=== PATIENT | male | born 1960 | race Caucasian/White ===

== ENCOUNTER 2019-07-26 17:02 | Inpatient (IN) | payer BC, MEDICARE ==
[~2019-07-26] VITALS: Ht 185.4 cm; Wt 98.0 kg
[2019-07-26] MEDS ORDERED: ACETAMINOPHEN 325MG TABLET PO STA (17:34)
[2019-07-26] MEDS ORDERED: KETOROLAC 30MG/ML VIAL IV STA (17:34)
[2019-07-26] MEDS ORDERED: ONDANSETRON HCL 4MG/2ML INJ IV STA (17:34)
[2019-07-26] MEDS ORDERED: HYDROCORTISONE SOD SUCCINATE 100 MG/2 ML VIAL IV ONE (17:45)
[2019-07-26] MEDS ORDERED: VANCOMYCIN 1 G PREMIX 200 ML IV ONE (17:45)
[2019-07-26] MEDS ORDERED: PIPERACILLIN/TAZ 3.375G PREMIX 50 ML IV ONE (17:45)
[2019-07-26] MEDS ORDERED: SODIUM CHLORIDE 0.9% 1000ML BAG (SEPSIS BOLUS) IV ONE (17:45)
[2019-07-26 18:13] LABS: CHLORIDE 95 mEq/L (98-107)
[2019-07-26 18:15] LABS: HEMATOCRIT. 30.9 % (42.0-52.0); HEMOGLOBIN. 10.6 g/dL (14.0-18.0); MEAN CORPUSCULAR HEMOGLOBIN 29.5 pg (28.0-32.0); MEAN CORPUSCULAR VOLUME 86.3 fL (80.0-94.0); MEAN PLATELET VOLUME 7.7 fl (7.4-10.4); PLATELET 136 x1000/uL (130-400); RED BLOOD CELL COUNT 3.59 mill/uL (4.7-6.1); RED CELL DISTRIBUTION WIDTH 14.3 % (11.6-14.6)
[2019-07-26 18:22] LABS: CREATINE KINASE 85 IU/L (39-308)
[2019-07-26 18:24] LABS: CREATINE KINASE MB FRACTION < 1.0 ng/mL (0.5-3.6)
[2019-07-26 18:32] LABS: INR 1.1; PROTHROMBIN TIME 11.6 sec (9.6-11.0)
[2019-07-26 18:38] LABS: CLARITY URINE CLEAR (CLEAR); COLOR URINE YELLOW (YELLOW); KETONES URINE NEGATIVE (NEGATIVE); LEUKOCYTE ESTERASE URINE NEGATIVE (NEGATIVE); NITRITE URINE NEGATIVE (NEGATIVE); OCCULT BLOOD URINE 2+ (NEGATIVE); PH URINE >=9.0 (4.5-8.0); PROTEIN URINE 3+ (NEGATIVE); SPECIFIC GRAVITY URINE 1.012 (1.005-1.030); UROBILINOGEN URINE 0.2 E.U./dL (0.2-1.0)
[2019-07-26 20:46] LABS: PLATELET ESTIMATE NORMAL
[2019-07-26] MEDS ORDERED: IPRATROPIUM/ALBUTEROL 0.5-3(2.5)MG/3ML NEB NEB PRN (22:45)
[2019-07-26] MEDS ORDERED: MAGNESIUM/ALUMINUM HYDROXIDE/SIMETHICONE 30ML UDC PO PRN (22:45)
[2019-07-26] MEDS ORDERED: DOCUSATE SODIUM 100MG CAPSULE PO PRN (22:45)
[2019-07-26] MEDS ORDERED: ENOXAPARIN 40MG/0.4ML SYR SUBCUT SCH (22:45)
[2019-07-26] MEDS ORDERED: NITROGLYCERIN 0.4MG TABLET SL SL PRN (22:45)
[2019-07-26] MEDS ORDERED: PIPERACILLIN/TAZ 3.375G PREMIX 50 ML IV SCH (22:45)
[2019-07-26] MEDS ORDERED: ZOLPIDEM TARTRATE 5MG TABLET PO PRN (22:45)
[2019-07-26] MEDS ORDERED: GUAIFENESIN 200MG/10ML SUGAR FREE UDC PO PRN (22:45)
[2019-07-27] MEDS: CLONIDINE 0.1MG TABLET PO PRN ×2 (01:03→08:41)
[2019-07-27] MEDS: TRAMADOL 50MG TABLET PO PRN ×4 (01:04→23:38)
[2019-07-27] MEDS: ACETAMINOPHEN 325MG TABLET PO PRN ×3 (04:31→20:02)
[2019-07-27 06:36] LABS: CREATINE KINASE 78 IU/L (39-308)
[2019-07-27 06:37] LABS: CREATINE KINASE MB FRACTION < 1.0 ng/mL (0.5-3.6)
[2019-07-27 08:49] LABS: *AMPHETAMINES SCREEN URINE NEGATIVE (NEGATIVE); *BARBITURATES SCREEN URINE NEGATIVE (NEGATIVE); *BENZODIAZEPINES SCREEN URINE NEGATIVE (NEGATIVE); *COCAINE SCREEN URINE NEGATIVE (NEGATIVE); METHADONE URINE SCREEN NEGATIVE (NEGATIVE); OPIATES URINE SCREEN NEGATIVE (NEGATIVE)
[2019-07-27 08:51] LABS: CANNABINOID URINE SCREEN NEGATIVE (NEGATIVE); PHENCYCLIDINE URINE SCREEN NEGATIVE (NEGATIVE)
[2019-07-27 10:16] LABS: HEMATOCRIT. 26.7 % (42.0-52.0); HEMOGLOBIN. 9.3 g/dL (14.0-18.0); MEAN CORPUSCULAR HEMOGLOBIN 30.3 pg (28.0-32.0); MEAN CORPUSCULAR VOLUME 87.5 fL (80.0-94.0); MEAN PLATELET VOLUME 7.8 fl (7.4-10.4); PLATELET 119 x1000/uL (130-400); RED BLOOD CELL COUNT 3.05 mill/uL (4.7-6.1); RED CELL DISTRIBUTION WIDTH 14.6 % (11.6-14.6)
[2019-07-27 10:26] LABS: PHOSPHORUS 3.1 mg/dL (2.5-4.9)
[2019-07-27 11:20] LABS: PLATELET ESTIMATE SLIGHTLY DECREASED
[2019-07-27] MEDS ORDERED: PIPERACILLIN/TAZ 3.375G PREMIX 50 ML IV ONE (11:30)
[2019-07-27] MEDS: ASPIRIN 325MG EC TABLET PO SCH (11:45)
[2019-07-27] MEDS: FAMOTIDINE 40MG TABLET PO SCH (11:47)
[2019-07-27] MEDS: METOPROLOL TARTRATE 25MG TABLET PO SCH ×2 (11:48→20:01)
[2019-07-27 14:10] VITALS: BP 135/57
[2019-07-27] MEDS ORDERED: FURO-152 PO (16:01)
[2019-07-27] MEDS ORDERED: LISI-604 PO (16:01)
[2019-07-27] MEDS ORDERED: FURO20TA4 MT (16:15)
[2019-07-27] MEDS ORDERED: NPH,100V SQ ×2 (16:15)
[2019-07-27] MEDS ORDERED: VANCOMYCIN 1 G PREMIX 200 ML IV SCH ×2 (16:30→20:00)
[2019-07-27] MEDS ORDERED: FOLI0.8T42 MT (16:35)
[2019-07-27] MEDS ORDERED: TERA1CAP7 MT (16:35)
[2019-07-27] MEDS ORDERED: FOLI1TAB87 PO (16:35)
[2019-07-27] MEDS ORDERED: FOLI0.8T23 MT (16:35)
[2019-07-27] MEDS ORDERED: LEVO75TA7 MT (16:35)
[2019-07-27] MEDS ORDERED: SIMV-46 MT (16:35)
[2019-07-27] MEDS ORDERED: AMLO10TA80 PO (16:35)
[2019-07-27] MEDS ORDERED: GABA-529 PO (16:35)
[2019-07-27] MEDS ORDERED: OMEG-31 MT (16:36)
[2019-07-27] MEDS ORDERED: CALC667C MT (16:36)
[2019-07-27] MEDS ORDERED: ASPI-1497 MT (16:36)
[2019-07-27] MEDS ORDERED: OMEG1CAP46 PO (16:36)
[2019-07-27] MEDS ORDERED: METO25TA6 MT (16:36)
[2019-07-27] MEDS ORDERED: OMEP20TA15 PO (16:36)
[2019-07-27 17:00] VITALS: BP 148/65
[2019-07-27] MEDS ORDERED: SEVELAMER CARBONATE 800 MG TABLET PO SCH (17:50)
[2019-07-27] MEDS: DILTIAZEM HCL 60MG TABLET PO SCH ×2 (18:00→23:37)
[2019-07-27] MEDS: CALCIUM ACETATE 667MG CAPSULE PO SCH (18:01)
[2019-07-27] MEDS: FOLIC ACID/VITAMIN B COMP W-C TABLET PO SCH (18:02)
[2019-07-27] MEDS: ENOXAPARIN 30MG/0.3ML SYR SUBCUT SCH (18:03)
[2019-07-27] MEDS: BLOOD SUGAR DIAGNOSTIC STRIP TEST SCH ×2 (18:03→20:46)
[2019-07-27] MEDS: INSULIN LISPRO 100 UNITS/ML SUBCUT SCH ×2 (18:17→20:45)
[2019-07-27] MEDS: PIPERACILLIN/TAZOBACTAM 2.25 G in DEXTROSE 5% WATER 50 ML IV SCH (20:01)
[2019-07-27 20:38] VITALS: BP 173/79
[2019-07-27] MEDS: INSULIN NPH (HUMULIN-N) 100 UNITS/ML 3ML VIAL SUBCUT SCH (20:48)
[2019-07-27] MEDS: LORAZEPAM 0.5MG TABLET PO PRN (23:38)
[2019-07-27 23:46] LABS: CREATINE KINASE 88 IU/L (39-308)
[2019-07-27 23:47] LABS: CREATINE KINASE MB FRACTION < 1.0 ng/mL (0.5-3.6)
[2019-07-28] VITALS (7 sets, daily range): BP systolic 129–226; BP diastolic 60–89
[2019-07-28] MEDS: PIPERACILLIN/TAZOBACTAM 2.25 G in DEXTROSE 5% WATER 50 ML IV SCH ×3 (05:05→22:44)
[2019-07-28] MEDS: DILTIAZEM HCL 60MG TABLET PO SCH ×4 (05:05→23:00)
[2019-07-28] MEDS: ACETAMINOPHEN 325MG TABLET PO PRN ×3 (05:05→20:00)
[2019-07-28] MEDS: TRAMADOL 50MG TABLET PO PRN ×2 (05:20→13:13)
[2019-07-28] MEDS: BLOOD SUGAR DIAGNOSTIC STRIP TEST SCH ×4 (05:39→20:26)
[2019-07-28] MEDS: INSULIN LISPRO 100 UNITS/ML SUBCUT SCH ×4 (06:46→20:27)
[2019-07-28] MEDS: FAMOTIDINE 40MG TABLET PO SCH (08:13)
[2019-07-28] MEDS: CALCIUM ACETATE 667MG CAPSULE PO SCH ×3 (08:13→17:50)
[2019-07-28] MEDS: ASPIRIN 325MG EC TABLET PO SCH (08:13)
[2019-07-28] MEDS: FOLIC ACID/VITAMIN B COMP W-C TABLET PO SCH (08:13)
[2019-07-28] MEDS: LORAZEPAM 0.5MG TABLET PO PRN (08:31)
[2019-07-28] MEDS: METOPROLOL TARTRATE 25MG TABLET PO SCH ×2 (08:31→20:01)
[2019-07-28] MEDS: INSULIN NPH (HUMULIN-N) 100 UNITS/ML 3ML VIAL SUBCUT SCH ×2 (09:05→20:26)
[2019-07-28] MEDS ORDERED: LORAZEPAM 2MG/ML CPJ IV NR (09:15)
[2019-07-28] MEDS: MORPHINE SULFATE 2 MG/ML CPJ (NOT FOR IM USE) IV PRN ×2 (17:11→23:00)
[2019-07-28] MEDS ORDERED: MORPHINE SULFATE 2 MG/ML CPJ (NOT FOR IM USE) IV PRN (17:15)
[2019-07-28] MEDS ORDERED: POTASSIUM CHLORIDE 20MEQ TABLET SR PO NR (17:22)
[2019-07-28 17:52] LABS: HEMATOCRIT 25.3 % (42.0-52.0); HEMOGLOBIN 8.8 g/dL (14.0-18.0); MEAN CORPUSCULAR VOLUME 86.8 fL (80.0-94.0); PLATELET 125 x1000/uL (130-400); RED BLOOD CELL COUNT 2.92 mill/uL (4.7-6.1); RED CELL DISTRIBUTION WIDTH 14.7 % (11.6-14.6)
[2019-07-28] MEDS: ENOXAPARIN 30MG/0.3ML SYR SUBCUT SCH (17:53)
[2019-07-28] MEDS: CLONIDINE 0.1MG TABLET PO PRN (20:01)
[2019-07-28] MEDS ORDERED: IOHEXOL-300 100 ML BOTTLE ONE (20:55)
[2019-07-29] VITALS: BP 156/90
[2019-07-29] MEDS: TRAMADOL 50MG TABLET PO PRN ×2 (00:41→08:13)
[2019-07-29 04:33] VITALS: BP 164/61
[2019-07-29] MEDS: MORPHINE SULFATE 2 MG/ML CPJ (NOT FOR IM USE) IV PRN ×2 (05:41→20:34)
[2019-07-29] MEDS: PIPERACILLIN/TAZOBACTAM 2.25 G in DEXTROSE 5% WATER 50 ML IV SCH ×2 (05:41→13:50)
[2019-07-29] MEDS: DILTIAZEM HCL 60MG TABLET PO SCH ×3 (05:42→19:01)
[2019-07-29] MEDS: BLOOD SUGAR DIAGNOSTIC STRIP TEST SCH ×4 (07:08→21:48)
[2019-07-29] MEDS: INSULIN LISPRO 100 UNITS/ML SUBCUT SCH ×4 (07:50→22:00)
[2019-07-29 08:28] VITALS: BP 175/62
[2019-07-29 08:38] LABS: HEMATOCRIT. 25.1 % (42.0-52.0); HEMOGLOBIN. 8.7 g/dL (14.0-18.0); MEAN PLATELET VOLUME 8.3 fl (7.4-10.4); PLATELET 128 x1000/uL (130-400); RED BLOOD CELL COUNT 2.89 mill/uL (4.7-6.1); RED CELL DISTRIBUTION WIDTH 14.7 % (11.6-14.6)
[2019-07-29 08:45] LABS: CHLORIDE 101 mEq/L (98-107)
[2019-07-29] MEDS: CALCIUM ACETATE 667MG CAPSULE PO SCH ×3 (08:57→18:52)
[2019-07-29] MEDS: FAMOTIDINE 40MG TABLET PO SCH (08:58)
[2019-07-29] MEDS: ASPIRIN 325MG EC TABLET PO SCH (08:58)
[2019-07-29] MEDS: FOLIC ACID/VITAMIN B COMP W-C TABLET PO SCH (08:58)
[2019-07-29] MEDS: METOPROLOL TARTRATE 25MG TABLET PO SCH ×2 (08:58→20:41)
[2019-07-29] MEDS ORDERED: LORAZEPAM 2MG/ML CPJ IV SCH (09:00)
[2019-07-29] MEDS ORDERED: MORPHINE SULFATE 2 MG/ML CPJ (NOT FOR IM USE) IV SCH (09:00)
[2019-07-29] MEDS: ACETAMINOPHEN 325MG TABLET PO PRN (10:00)
[2019-07-29] MEDS: INSULIN NPH (HUMULIN-N) 100 UNITS/ML 3ML VIAL SUBCUT SCH ×2 (10:03→22:01)
[2019-07-29 12:00] VITALS: BP 163/80
[2019-07-29 12:06] LABS: PLATELET ESTIMATE SLIGHTLY DECREASED
[2019-07-29] MEDS: ENOXAPARIN 30MG/0.3ML SYR SUBCUT SCH (18:52)
[2019-07-29 20:00] VITALS: BP 198/66
[2019-07-29] MEDS: NAFCILLIN SODIUM 2,000 MG in SODIUM CHLORIDE 0.9% 100 ML IV SCH (20:00)
[2019-07-29] MEDS: CLONIDINE 0.1MG TABLET PO PRN (20:39)
[2019-07-29] MEDS: LORAZEPAM 0.5MG TABLET PO PRN (22:42)
[2019-07-30] VITALS (46 sets, daily range): BP systolic 97–199; BP diastolic 45–84
[2019-07-30] MEDS: DILTIAZEM HCL 60MG TABLET PO SCH ×5 (01:20→23:10)
[2019-07-30] MEDS: NAFCILLIN SODIUM 2,000 MG in SODIUM CHLORIDE 0.9% 100 ML IV SCH ×5 (01:20→23:32)
[2019-07-30] MEDS: MORPHINE SULFATE 2 MG/ML CPJ (NOT FOR IM USE) IV PRN ×3 (05:55→21:29)
[2019-07-30] MEDS: CLONIDINE 0.1MG TABLET PO PRN (06:58)
[2019-07-30] MEDS: BLOOD SUGAR DIAGNOSTIC STRIP TEST SCH ×4 (07:06→21:03)
[2019-07-30 07:24] LABS: BASOPHILS % 0.3 % (0.0-2.0); HEMATOCRIT. 23.8 % (42.0-52.0); HEMOGLOBIN. 8.3 g/dL (14.0-18.0); LYMPHOCYTES % 9.7 % (20.0-50.0); MEAN CORPUSCULAR HEMOGLOBIN 30.2 pg (28.0-32.0); MEAN CORPUSCULAR VOLUME 86.7 fL (80.0-94.0); MEAN PLATELET VOLUME 7.8 fl (7.4-10.4); MONOCYTES % 7.9 % (2.0-8.0); NEUTROPHILS % 79.1 % (40.0-76.0); PLATELET 165 x1000/uL (130-400); RED BLOOD CELL COUNT 2.74 mill/uL (4.7-6.1)
[2019-07-30] MEDS ORDERED: HEPARIN 1000 UNITS/ML 10ML ONE (07:26)
[2019-07-30] MEDS: INSULIN LISPRO 100 UNITS/ML SUBCUT SCH ×4 (07:50→21:04)
[2019-07-30 07:59] LABS: CHLORIDE 98 mEq/L (98-107)
[2019-07-30 08:13] LABS: PHOSPHORUS 3.3 mg/dL (2.5-4.9)
[2019-07-30] MEDS: FAMOTIDINE 40MG TABLET PO SCH (08:55)
[2019-07-30] MEDS: FOLIC ACID/VITAMIN B COMP W-C TABLET PO SCH (08:56)
[2019-07-30] MEDS: TRAMADOL 50MG TABLET PO PRN (08:56)
[2019-07-30] MEDS: CALCIUM ACETATE 667MG CAPSULE PO SCH ×3 (08:56→17:00)
[2019-07-30] MEDS: ASPIRIN 325MG EC TABLET PO SCH (08:56)
[2019-07-30] MEDS: METOPROLOL TARTRATE 25MG TABLET PO SCH ×2 (08:57→20:47)
[2019-07-30] MEDS: INSULIN NPH (HUMULIN-N) 100 UNITS/ML 3ML VIAL SUBCUT SCH ×2 (09:00→21:05)
[2019-07-30] MEDS ORDERED: THROMBIN (BOVINE) 5000 UNITS/VIAL TOP ONE (10:18)
[2019-07-30] MEDS ORDERED: BACITRACIN 50,000 UNITS/VIAL ONE (10:52)
[2019-07-30] MEDS ORDERED: LIDOCAINE HCL/EPINEPHRINE 1%-EPI 1:100,000 20 ML VIAL ONE (10:52)
[2019-07-30] MEDS ORDERED: NORMAL SALINE 0.9% 10 ML SYR ONE (10:53)
[2019-07-30] MEDS ORDERED: BACITRACIN 15GM TUBE TOP ONE (10:53)
[2019-07-30] MEDS ORDERED: ROCURONIUM BROMIDE 10MG/ML VIAL 5ML IV ONE (13:09)
[2019-07-30] MEDS ORDERED: FENTANYL CITRATE/PF 50MCG/ML 2ML VIAL ONE ×2 (13:09→14:38)
[2019-07-30] MEDS ORDERED: PROPOFOL 200MG/20ML VIAL IV ONE (13:09)
[2019-07-30] MEDS ORDERED: MIDAZOLAM HCL 2 MG/2 ML VIAL ONE ×2 (13:09→14:38)
[2019-07-30] MEDS ORDERED: NEOSTIGMINE METHYLSULFATE 1MG/ML 10 ML VIAL ONE (13:09)
[2019-07-30] MEDS ORDERED: ONDANSETRON HCL 4MG/2ML INJ ONE (13:10)
[2019-07-30] MEDS ORDERED: GLYCOPYRROLATE 0.2 MG/ML 2ML VIAL ONE (13:10)
[2019-07-30] MEDS ORDERED: DEXAMETHASONE 4MG/ML 1ML VIAL ONE (13:14)
[2019-07-30] MEDS ORDERED: SUCCINYLCHOLINE CHLORIDE 200MG/10ML IV ONE (13:14)
[2019-07-30] MEDS ORDERED: NICARDIPINE 100 MG in SODIUM CHLORIDE 0.9% 60 ML IV PRN (16:30)
[2019-07-30] MEDS: DEXT 5%/0.9% NACL 1,000 ML IV SCH (16:32)
[2019-07-30 16:41] LABS: BG BASE EXCESS -2.5 mmol/L (-2.0-2.0); BG DEOXYHEMOGLOBIN 0.7 % (0.0-5.0); BG METHEMOGLOBIN 0.2 % (0.0-1.5); BG OXYGEN SATURATION 99.3 % (92.0-98.5); BG OXYHEMOGLOBIN 99.1 % (94.0-97.0); BG PH 7.267 (7.350-7.450); BG PO2 355.8 mmHg (75.0-100.0); BG SAMPLE SITE RIGHT RADIAL; BG TIDAL VOLUME(mL) 600 mL; BG TOTAL HEMOGLOBIN 11.4 g/dL (12.0-18.0); BG VENT MODE VENT - A/C; BG VENT RATE 12 set
[2019-07-30] MEDS: PROPOFOL 10MG/ML 100ML 100 ML IV PRN ×2 (16:57→22:29)
[2019-07-30] MEDS: IPRATROPIUM/ALBUTEROL 0.5-3(2.5)MG/3ML NEB HHN SCH (20:53)
[2019-07-31] VITALS (102 sets, daily range): BP systolic 82–158; BP diastolic 41–103
[2019-07-31] MEDS: IPRATROPIUM/ALBUTEROL 0.5-3(2.5)MG/3ML NEB HHN SCH ×4 (01:53→20:34)
[2019-07-31] MEDS: MORPHINE SULFATE 2 MG/ML CPJ (NOT FOR IM USE) IV PRN ×3 (02:52→08:00)
[2019-07-31] MEDS: PROPOFOL 10MG/ML 100ML 100 ML IV PRN ×3 (03:26→10:07)
[2019-07-31] MEDS: BLOOD SUGAR DIAGNOSTIC STRIP TEST SCH ×4 (05:36→20:48)
[2019-07-31] MEDS: NAFCILLIN SODIUM 2,000 MG in SODIUM CHLORIDE 0.9% 100 ML IV SCH ×3 (05:36→17:56)
[2019-07-31] MEDS: DILTIAZEM HCL 60MG TABLET PO SCH ×4 (06:00→23:23)
[2019-07-31] MEDS: INSULIN LISPRO 100 UNITS/ML SUBCUT SCH ×4 (06:01→20:49)
[2019-07-31 06:13] LABS: HEMATOCRIT. 23.6 % (42.0-52.0); HEMOGLOBIN. 8.2 g/dL (14.0-18.0); MEAN CORPUSCULAR HEMOGLOBIN 30.4 pg (28.0-32.0); MEAN CORPUSCULAR VOLUME 87.6 fL (80.0-94.0); MEAN PLATELET VOLUME 8.1 fl (7.4-10.4); PLATELET 165 x1000/uL (130-400); RED BLOOD CELL COUNT 2.69 mill/uL (4.7-6.1); RED CELL DISTRIBUTION WIDTH 15.4 % (11.6-14.6)
[2019-07-31] MEDS: CALCIUM ACETATE 667MG CAPSULE PO SCH ×3 (06:15→17:00)
[2019-07-31 06:31] LABS: CHLORIDE 105 mEq/L (98-107)
[2019-07-31 06:43] LABS: PHOSPHORUS 5.1 mg/dL (2.5-4.9)
[2019-07-31 08:51] LABS: BG BASE EXCESS 0.1 mmol/L (-2.0-2.0); BG CARBOXYHEMOGLOBIN 0.1 % (0.5-1.5); BG DEOXYHEMOGLOBIN 6.3 % (0.0-5.0); BG FRACTION INSPIRED OXYGEN 50; BG HCO3 ACT 26.1 mmol/L (22.0-26.0); BG METHEMOGLOBIN 0.1 % (0.0-1.5); BG OXYGEN SATURATION 93.7 % (92.0-98.5); BG OXYHEMOGLOBIN 93.5 % (94.0-97.0); BG PCO2 48.7 mmHg (35.0-45.0); BG PH 7.347 (7.350-7.450); BG PO2 71.3 mmHg (75.0-100.0); BG SAMPLE SITE RIGHT BRACHIAL; BG TIDAL VOLUME(mL) 600 mL; BG TOTAL HEMOGLOBIN 10.8 g/dL (12.0-18.0); BG VENT MODE VENT - A/C; BG VENT RATE 16 set
[2019-07-31] MEDS: FOLIC ACID/VITAMIN B COMP W-C TABLET PO SCH (09:00)
[2019-07-31] MEDS: METOPROLOL TARTRATE 25MG TABLET PO SCH ×2 (09:00→20:28)
[2019-07-31 09:52] LABS: PLATELET ESTIMATE NORMAL
[2019-07-31] MEDS: FAMOTIDINE 20MG/2ML VIAL IV SCH (10:30)
[2019-07-31] MEDS: INSULIN NPH (HUMULIN-N) 100 UNITS/ML 3ML VIAL SUBCUT SCH ×2 (10:32→21:12)
[2019-07-31] MEDS ORDERED: ALBUMIN HUMAN 25GM/500ML (5%) IV NR (14:30)
[2019-07-31] MEDS: FENTANYL CITRATE/PF 1,000 MCG in SODIUM CHLORIDE 0.9% 80 ML IV PRN (14:57)
[2019-07-31] MEDS: MIDAZOLAM HCL 100 MG in DEXT 5% WATER 80 ML IV PRN (14:58)
[2019-07-31] MEDS: NICARDIPINE 100 MG in SODIUM CHLORIDE 0.9% 60 ML IV PRN (16:16)
[2019-07-31] MEDS: DEXT 5%/0.9% NACL 1,000 ML IV SCH (16:17)
[2019-08-01] VITALS (102 sets, daily range): BP systolic 122–158; BP diastolic 50–94
[2019-08-01] MEDS: IPRATROPIUM/ALBUTEROL 0.5-3(2.5)MG/3ML NEB HHN SCH ×4 (02:30→20:15)
[2019-08-01] MEDS: DEXTROSE 50% WATER 50ML SYRINGE IV PRN ×2 (05:52→16:49)
[2019-08-01 05:53] LABS: BASOPHILS % 0.9 % (0.0-2.0); EOSINOPHILS % 2.2 % (0.0-5.0); HEMATOCRIT. 23.6 % (42.0-52.0); HEMOGLOBIN. 8.2 g/dL (14.0-18.0); LYMPHOCYTES % 10.5 % (20.0-50.0); MEAN CORPUSCULAR HEMOGLOBIN 30.4 pg (28.0-32.0); MEAN CORPUSCULAR VOLUME 87.3 fL (80.0-94.0); MEAN PLATELET VOLUME 7.5 fl (7.4-10.4); MONOCYTES % 10.6 % (2.0-8.0); NEUTROPHILS % 75.8 % (40.0-76.0); PLATELET 183 x1000/uL (130-400); RED BLOOD CELL COUNT 2.71 mill/uL (4.7-6.1); RED CELL DISTRIBUTION WIDTH 15.4 % (11.6-14.6)
[2019-08-01] MEDS: MORPHINE SULFATE 2 MG/ML CPJ (NOT FOR IM USE) IV PRN ×2 (05:53→22:28)
[2019-08-01] MEDS: DILTIAZEM HCL 60MG TABLET PO SCH ×4 (06:00→23:53)
[2019-08-01 06:12] LABS: CHLORIDE 108 mEq/L (98-107)
[2019-08-01 06:16] LABS: PHOSPHORUS 4.1 mg/dL (2.5-4.9)
[2019-08-01] MEDS: BLOOD SUGAR DIAGNOSTIC STRIP TEST SCH ×4 (06:43→20:10)
[2019-08-01] MEDS: CALCIUM ACETATE 667MG CAPSULE PO SCH ×3 (06:44→16:46)
[2019-08-01] MEDS: INSULIN LISPRO 100 UNITS/ML SUBCUT SCH ×4 (06:44→20:10)
[2019-08-01] MEDS: DEXT 5%/0.9% NACL 1,000 ML IV SCH ×2 (06:45→12:59)
[2019-08-01 07:36] LABS: BG BASE EXCESS 1.7 mmol/L (-2.0-2.0); BG CARBOXYHEMOGLOBIN 0.9 % (0.5-1.5); BG DEOXYHEMOGLOBIN 2.5 % (0.0-5.0); BG FRACTION INSPIRED OXYGEN 55; BG HCO3 ACT 26.7 mmol/L (22.0-26.0); BG METHEMOGLOBIN 0.1 % (0.0-1.5); BG OXYGEN SATURATION 97.5 % (92.0-98.5); BG OXYHEMOGLOBIN 96.5 % (94.0-97.0); BG PCO2 44.1 mmHg (35.0-45.0); BG PO2 93.9 mmHg (75.0-100.0); BG SAMPLE SITE RIGHT RADIAL; BG TIDAL VOLUME(mL) 600 mL; BG VENT MODE VENT - A/C; BG VENT RATE 16 set
[2019-08-01] MEDS: FAMOTIDINE 20MG/2ML VIAL IV SCH (08:12)
[2019-08-01] MEDS: NICARDIPINE 100 MG in SODIUM CHLORIDE 0.9% 60 ML IV PRN ×3 (08:12→21:10)
[2019-08-01] MEDS: METOPROLOL TARTRATE 25MG TABLET PO SCH ×2 (08:13→20:01)
[2019-08-01] MEDS: FOLIC ACID/VITAMIN B COMP W-C TABLET PO SCH (08:17)
[2019-08-01] MEDS: INSULIN NPH (HUMULIN-N) 100 UNITS/ML 3ML VIAL SUBCUT SCH ×2 (09:06→21:11)
[2019-08-01] MEDS: FENTANYL CITRATE/PF 1,000 MCG in SODIUM CHLORIDE 0.9% 80 ML IV PRN (11:05)
[2019-08-01] MEDS: CEFAZOLIN 2,000 MG in DEXT 5% WATER 100 ML IV SCH (18:27)
[2019-08-02] VITALS (95 sets, daily range): BP systolic 105–148; BP diastolic 39–94
[2019-08-02] MEDS: IPRATROPIUM/ALBUTEROL 0.5-3(2.5)MG/3ML NEB HHN SCH ×4 (02:08→20:09)
[2019-08-02] MEDS: NICARDIPINE 100 MG in SODIUM CHLORIDE 0.9% 60 ML IV PRN ×3 (03:58→17:17)
[2019-08-02] MEDS: FENTANYL CITRATE/PF 1,000 MCG in SODIUM CHLORIDE 0.9% 80 ML IV PRN ×2 (03:58→23:26)
[2019-08-02] MEDS: BLOOD SUGAR DIAGNOSTIC STRIP TEST SCH ×4 (05:16→21:16)
[2019-08-02] MEDS: DEXTROSE 50% WATER 50ML SYRINGE IV PRN (05:16)
[2019-08-02 05:17] LABS: BASOPHILS % 0.8 % (0.0-2.0); EOSINOPHILS % 4.9 % (0.0-5.0); HEMATOCRIT. 23.9 % (42.0-52.0); HEMOGLOBIN. 8.5 g/dL (14.0-18.0); LYMPHOCYTES % 9.7 % (20.0-50.0); MEAN CORPUSCULAR HEMOGLOBIN 31.4 pg (28.0-32.0); MEAN CORPUSCULAR VOLUME 87.6 fL (80.0-94.0); MEAN PLATELET VOLUME 7.2 fl (7.4-10.4); MONOCYTES % 8.8 % (2.0-8.0); NEUTROPHILS % 75.8 % (40.0-76.0); PLATELET 212 x1000/uL (130-400); RED BLOOD CELL COUNT 2.72 mill/uL (4.7-6.1); RED CELL DISTRIBUTION WIDTH 15.7 % (11.6-14.6)
[2019-08-02] MEDS: DILTIAZEM HCL 60MG TABLET PO SCH ×4 (05:17→23:26)
[2019-08-02] MEDS: INSULIN LISPRO 100 UNITS/ML SUBCUT SCH ×4 (05:17→21:00)
[2019-08-02 05:51] LABS: CHLORIDE 110 mEq/L (98-107)
[2019-08-02 06:01] LABS: PHOSPHORUS 5.3 mg/dL (2.5-4.9)
[2019-08-02] MEDS: CALCIUM ACETATE 667MG CAPSULE PO SCH ×3 (06:31→16:28)
[2019-08-02] MEDS: DEXT 5%/0.9% NACL 1,000 ML IV SCH ×2 (08:00→11:45)
[2019-08-02] MEDS: CEFAZOLIN 2,000 MG in DEXT 5% WATER 100 ML IV SCH (08:23)
[2019-08-02] MEDS: FAMOTIDINE 20MG/2ML VIAL IV SCH (08:23)
[2019-08-02] MEDS ORDERED: INSULIN NPH (HUMULIN-N) 100 UNITS/ML 3ML VIAL SUBCUT SCH (09:00)
[2019-08-02] MEDS: FOLIC ACID/VITAMIN B COMP W-C TABLET PO SCH (09:00)
[2019-08-02] MEDS: METOPROLOL TARTRATE 25MG TABLET PO SCH ×2 (09:00→21:00)
[2019-08-02 13:34] LABS: BG BASE EXCESS 2.4 mmol/L (-2.0-2.0); BG CARBOXYHEMOGLOBIN 0.3 % (0.5-1.5); BG DEOXYHEMOGLOBIN 5.1 % (0.0-5.0); BG FRACTION INSPIRED OXYGEN 40; BG HCO3 ACT 26.8 mmol/L (22.0-26.0); BG OXYGEN SATURATION 94.9 % (92.0-98.5); BG OXYHEMOGLOBIN 94.6 % (94.0-97.0); BG PCO2 40.8 mmHg (35.0-45.0); BG PH 7.435 (7.350-7.450); BG PO2 75.5 mmHg (75.0-100.0); BG PRESSURE SUPPORT 12; BG SAMPLE SITE RIGHT RADIAL; BG TIDAL VOLUME(mL) 500 mL; BG TOTAL HEMOGLOBIN 8.6 g/dL (12.0-18.0); BG VENT MODE VENT - SIMV; BG VENT RATE 8 set
[2019-08-02 13:51] LABS: BASOPHILS % 0.6 % (0.0-2.0); EOSINOPHILS % 4.3 % (0.0-5.0); HEMATOCRIT. 26.8 % (42.0-52.0); HEMOGLOBIN. 9.2 g/dL (14.0-18.0); LYMPHOCYTES % 9.3 % (20.0-50.0); MEAN PLATELET VOLUME 6.9 fl (7.4-10.4); NEUTROPHILS % 77.8 % (40.0-76.0); PLATELET 259 x1000/uL (130-400); RED BLOOD CELL COUNT 3.08 mill/uL (4.7-6.1); RED CELL DISTRIBUTION WIDTH 15.3 % (11.6-14.6)
[2019-08-02] MEDS: EPOETIN ALFA 10000UNITS/ML VIAL SUBCUT SCH (21:11)
[2019-08-02] MEDS: INSULIN NPH (HUMULIN-N) 100 UNITS/ML 3ML VIAL SUBCUT SCH (21:14)
[2019-08-03] VITALS (100 sets, daily range): BP systolic 108–157; BP diastolic 42–116
[2019-08-03] MEDS: NICARDIPINE 100 MG in SODIUM CHLORIDE 0.9% 60 ML IV PRN (01:20)
[2019-08-03] MEDS: IPRATROPIUM/ALBUTEROL 0.5-3(2.5)MG/3ML NEB HHN SCH ×4 (02:11→20:48)
[2019-08-03 05:40] LABS: HEMATOCRIT. 25.6 % (42.0-52.0); HEMOGLOBIN. 8.7 g/dL (14.0-18.0); MEAN CORPUSCULAR VOLUME 88.1 fL (80.0-94.0); PLATELET 239 x1000/uL (130-400); RED BLOOD CELL COUNT 2.91 mill/uL (4.7-6.1); RED CELL DISTRIBUTION WIDTH 15.1 % (11.6-14.6)
[2019-08-03] MEDS: DEXTROSE 50% WATER 50ML SYRINGE IV PRN (05:44)
[2019-08-03] MEDS: BLOOD SUGAR DIAGNOSTIC STRIP TEST SCH ×4 (06:58→21:00)
[2019-08-03] MEDS: CALCIUM ACETATE 667MG CAPSULE PO SCH ×3 (06:58→17:00)
[2019-08-03] MEDS: INSULIN LISPRO 100 UNITS/ML SUBCUT SCH ×4 (06:59→21:00)
[2019-08-03] MEDS: NICARDIPINE 100 MG in SODIUM CHLORIDE 0.9% 60 ML IV SCH ×3 (07:48→23:35)
[2019-08-03 08:20] LABS: PLATELET ESTIMATE NORMAL
[2019-08-03] MEDS: METOPROLOL TARTRATE 25MG TABLET PO SCH ×2 (09:00→20:31)
[2019-08-03] MEDS: FOLIC ACID/VITAMIN B COMP W-C TABLET PO SCH (09:00)
[2019-08-03] MEDS: FAMOTIDINE 20MG/2ML VIAL IV SCH (09:44)
[2019-08-03] MEDS: CEFAZOLIN 2,000 MG in DEXT 5% WATER 100 ML IV SCH (09:44)
[2019-08-03] MEDS: DEXT 5%/0.9% NACL 1,000 ML IV SCH ×2 (11:17→17:04)
[2019-08-03] MEDS: MIDAZOLAM HCL 100 MG in DEXT 5% WATER 80 ML IV PRN (12:19)
[2019-08-03 13:56] LABS: BG CARBOXYHEMOGLOBIN 0.3 % (0.5-1.5); BG DEOXYHEMOGLOBIN 4.5 % (0.0-5.0); BG FRACTION INSPIRED OXYGEN 40; BG HCO3 ACT 27.7 mmol/L (22.0-26.0); BG METHEMOGLOBIN 0.1 % (0.0-1.5); BG OXYGEN SATURATION 95.5 % (92.0-98.5); BG OXYHEMOGLOBIN 95.1 % (94.0-97.0); BG PCO2 48.6 mmHg (35.0-45.0); BG PH 7.373 (7.350-7.450); BG PO2 79.9 mmHg (75.0-100.0); BG PRESSURE SUPPORT 8; BG SAMPLE SITE RIGHT RADIAL; BG TOTAL HEMOGLOBIN 9.5 g/dL (12.0-18.0); BG VENT MODE VENT - CPAP
[2019-08-03] MEDS: MORPHINE SULFATE 4 MG/ML CPJ (NOT FOR IM USE) IV PRN ×2 (17:34→19:51)
[2019-08-03] MEDS: ONDANSETRON HCL 4MG/2ML INJ IV PRN (18:51)
[2019-08-03] MEDS ORDERED: PHENOL/SODIUM PHENOLATE 1.4% SRPAY 177ML MM PRN (20:00)
[2019-08-03] MEDS: INSULIN NPH (HUMULIN-N) 100 UNITS/ML 3ML VIAL SUBCUT SCH (22:05)
[2019-08-04] VITALS (96 sets, daily range): BP systolic 119–159; BP diastolic 47–104
[2019-08-04] MEDS: DIPHENHYDRAMINE 50MG/ML VIAL IV PRN (00:20)
[2019-08-04] MEDS: IPRATROPIUM/ALBUTEROL 0.5-3(2.5)MG/3ML NEB HHN SCH ×4 (02:45→21:07)
[2019-08-04 05:53] LABS: BASOPHILS % 0.4 % (0.0-2.0); EOSINOPHILS % 3.1 % (0.0-5.0); HEMATOCRIT. 26.3 % (42.0-52.0); MEAN CORPUSCULAR HEMOGLOBIN 30.2 pg (28.0-32.0); MEAN CORPUSCULAR VOLUME 88.2 fL (80.0-94.0); MEAN PLATELET VOLUME 6.9 fl (7.4-10.4); MONOCYTES % 6.8 % (2.0-8.0); NEUTROPHILS % 81.7 % (40.0-76.0); PLATELET 243 x1000/uL (130-400); RED BLOOD CELL COUNT 2.98 mill/uL (4.7-6.1); RED CELL DISTRIBUTION WIDTH 15.1 % (11.6-14.6)
[2019-08-04] MEDS: BLOOD SUGAR DIAGNOSTIC STRIP TEST SCH ×4 (06:30→21:00)
[2019-08-04] MEDS: INSULIN LISPRO 100 UNITS/ML SUBCUT SCH ×4 (06:36→22:47)
[2019-08-04] MEDS: NICARDIPINE 100 MG in SODIUM CHLORIDE 0.9% 60 ML IV SCH ×2 (06:52→16:08)
[2019-08-04] MEDS: CALCIUM ACETATE 667MG CAPSULE PO SCH ×3 (07:00→16:09)
[2019-08-04] MEDS: MORPHINE SULFATE 4 MG/ML CPJ (NOT FOR IM USE) IV PRN ×2 (07:33→21:56)
[2019-08-04 08:19] LABS: BG BASE EXCESS -4.8 mmol/L (-2.0-2.0); BG CARBOXYHEMOGLOBIN 0.2 % (0.5-1.5); BG FRACTION INSPIRED OXYGEN 80; BG HCO3 ACT 20.8 mmol/L (22.0-26.0); BG METHEMOGLOBIN 0.9 % (0.0-1.5); BG OXYHEMOGLOBIN 95.9 % (94.0-97.0); BG PCO2 40.6 mmHg (35.0-45.0); BG PH 7.327 (7.350-7.450); BG PO2 107.2 mmHg (75.0-100.0); BG SAMPLE SITE RIGHT RADIAL; BG TOTAL HEMOGLOBIN 8.9 g/dL (12.0-18.0); BG VENT MODE MASK - AEROSOL
[2019-08-04] MEDS: AMLODIPINE 5MG TABLET PO SCH ×2 (09:00→20:44)
[2019-08-04] MEDS: METOPROLOL TARTRATE 25MG TABLET PO SCH ×2 (09:00→20:44)
[2019-08-04] MEDS: FOLIC ACID/VITAMIN B COMP W-C TABLET PO SCH (09:00)
[2019-08-04] MEDS: FAMOTIDINE 20MG/2ML VIAL IV SCH (09:58)
[2019-08-04] MEDS: INSULIN NPH (HUMULIN-N) 100 UNITS/ML 3ML VIAL SUBCUT SCH ×2 (10:01→22:47)
[2019-08-04] MEDS: CEFAZOLIN 2,000 MG in DEXT 5% WATER 100 ML IV SCH (13:06)
[2019-08-04] MEDS: RIFAMPIN 300MG CAPSULE PO SCH (16:07)
[2019-08-05] VITALS (82 sets, daily range): BP systolic 100–151; BP diastolic 39–73
[2019-08-05] MEDS: NICARDIPINE 100 MG in SODIUM CHLORIDE 0.9% 60 ML IV SCH ×3 (00:43→17:30)
[2019-08-05] MEDS: IPRATROPIUM/ALBUTEROL 0.5-3(2.5)MG/3ML NEB HHN SCH ×4 (01:05→20:26)
[2019-08-05 05:59] LABS: BASOPHILS % 0.5 % (0.0-2.0); EOSINOPHILS % 3.1 % (0.0-5.0); HEMATOCRIT. 27.3 % (42.0-52.0); HEMOGLOBIN. 9.3 g/dL (14.0-18.0); LYMPHOCYTES % 7.2 % (20.0-50.0); MEAN CORPUSCULAR HEMOGLOBIN 29.6 pg (28.0-32.0); MEAN CORPUSCULAR VOLUME 87.5 fL (80.0-94.0); MEAN PLATELET VOLUME 6.9 fl (7.4-10.4); NEUTROPHILS % 83.2 % (40.0-76.0); PLATELET 219 x1000/uL (130-400); RED BLOOD CELL COUNT 3.12 mill/uL (4.7-6.1); RED CELL DISTRIBUTION WIDTH 14.9 % (11.6-14.6)
[2019-08-05] MEDS: BLOOD SUGAR DIAGNOSTIC STRIP TEST SCH ×4 (06:30→21:27)
[2019-08-05] MEDS: INSULIN LISPRO 100 UNITS/ML SUBCUT SCH ×4 (06:39→21:27)
[2019-08-05] MEDS: CALCIUM ACETATE 667MG CAPSULE PO SCH ×3 (08:26→17:00)
[2019-08-05] MEDS: FAMOTIDINE 20MG/2ML VIAL IV SCH (08:26)
[2019-08-05] MEDS: CEFAZOLIN 2,000 MG in DEXT 5% WATER 100 ML IV SCH (08:26)
[2019-08-05] MEDS: RIFAMPIN 300MG CAPSULE PO SCH (08:27)
[2019-08-05] MEDS: FOLIC ACID/VITAMIN B COMP W-C TABLET PO SCH (08:29)
[2019-08-05] MEDS: METOPROLOL TARTRATE 25MG TABLET PO SCH ×2 (08:29→21:26)
[2019-08-05] MEDS: AMLODIPINE 5MG TABLET PO SCH ×2 (08:29→21:25)
[2019-08-05] MEDS: INSULIN NPH (HUMULIN-N) 100 UNITS/ML 3ML VIAL SUBCUT SCH ×2 (08:32→21:27)
[2019-08-05] MEDS: ONDANSETRON HCL 4MG/2ML INJ IV PRN (10:35)
[2019-08-05] MEDS: DEXT 5%/0.9% NACL 1,000 ML IV SCH ×2 (11:02→13:31)
[2019-08-05] MEDS: DILTIAZEM HCL 60MG TABLET PO SCH ×2 (12:00→18:31)
[2019-08-05] MEDS: EPOETIN ALFA 10000UNITS/ML VIAL SUBCUT SCH (21:25)
[2019-08-05] MEDS: MORPHINE SULFATE 4 MG/ML CPJ (NOT FOR IM USE) IV PRN (21:26)
[2019-08-06] VITALS (38 sets, daily range): BP systolic 109–169; BP diastolic 40–88
[2019-08-06] MEDS: DILTIAZEM HCL 60MG TABLET PO SCH ×3 (00:06→12:17)
[2019-08-06] MEDS: IPRATROPIUM/ALBUTEROL 0.5-3(2.5)MG/3ML NEB HHN SCH ×4 (01:54→19:49)
[2019-08-06] MEDS: ONDANSETRON HCL 4MG/2ML INJ IV PRN ×2 (02:19→08:55)
[2019-08-06 05:28] LABS: HEMATOCRIT. 25.2 % (42.0-52.0); HEMOGLOBIN. 8.7 g/dL (14.0-18.0); MEAN CORPUSCULAR HEMOGLOBIN 29.7 pg (28.0-32.0); MEAN CORPUSCULAR VOLUME 86.3 fL (80.0-94.0); MEAN PLATELET VOLUME 6.9 fl (7.4-10.4); PLATELET 234 x1000/uL (130-400); RED BLOOD CELL COUNT 2.92 mill/uL (4.7-6.1); RED CELL DISTRIBUTION WIDTH 14.8 % (11.6-14.6)
[2019-08-06 05:50] LABS: CHLORIDE 105 mEq/L (98-107)
[2019-08-06 05:56] LABS: PHOSPHORUS 4.7 mg/dL (2.5-4.9)
[2019-08-06] MEDS: BLOOD SUGAR DIAGNOSTIC STRIP TEST SCH ×4 (05:58→20:54)
[2019-08-06] MEDS: INSULIN LISPRO 100 UNITS/ML SUBCUT SCH ×4 (05:59→20:54)
[2019-08-06] MEDS: CALCIUM ACETATE 667MG CAPSULE PO SCH ×3 (06:00→18:08)
[2019-08-06] MEDS: METOPROLOL TARTRATE 25MG TABLET PO SCH ×2 (08:43→20:53)
[2019-08-06] MEDS: AMLODIPINE 5MG TABLET PO SCH ×2 (08:44→20:54)
[2019-08-06] MEDS: FAMOTIDINE 20MG/2ML VIAL IV SCH (08:55)
[2019-08-06] MEDS: FOLIC ACID/VITAMIN B COMP W-C TABLET PO SCH (08:55)
[2019-08-06] MEDS: INSULIN NPH (HUMULIN-N) 100 UNITS/ML 3ML VIAL SUBCUT SCH ×2 (08:59→20:54)
[2019-08-06] MEDS ORDERED: AMLODIPINE 5MG TABLET PO NR (11:34)
[2019-08-06] MEDS ORDERED: METOPROLOL TARTRATE 25MG TABLET PO NR (11:34)
[2019-08-06 11:46] LABS: PLATELET ESTIMATE NORMAL
[2019-08-06] MEDS: CEFAZOLIN 2,000 MG in DEXT 5% WATER 100 ML IV SCH (12:18)
[2019-08-06] MEDS: METOCLOPRAMIDE HCL 10MG/2ML VIAL IV SCH ×3 (12:18→23:53)
[2019-08-06] MEDS: DEXT 5%/0.9% NACL 1,000 ML IV SCH (13:19)
[2019-08-06] MEDS: NICARDIPINE 100 MG in SODIUM CHLORIDE 0.9% 60 ML IV SCH (17:00)
[2019-08-06] MEDS: DILTIAZEM HCL 90MG TABLET PO SCH ×2 (18:08→23:52)
[2019-08-06] MEDS: CLONIDINE 0.1MG TABLET PO PRN (18:40)
[2019-08-06] MEDS: DIPHENHYDRAMINE 50MG/ML VIAL IV PRN (23:52)
[2019-08-07] VITALS (19 sets, daily range): BP systolic 138–184; BP diastolic 53–103
[2019-08-07] MEDS: IPRATROPIUM/ALBUTEROL 0.5-3(2.5)MG/3ML NEB HHN SCH ×4 (01:57→20:43)
[2019-08-07] MEDS: CLONIDINE 0.1MG TABLET PO PRN (03:12)
[2019-08-07] MEDS: MORPHINE SULFATE 4 MG/ML CPJ (NOT FOR IM USE) IV PRN ×2 (04:35→12:13)
[2019-08-07] MEDS: INSULIN LISPRO 100 UNITS/ML SUBCUT SCH ×4 (04:42→20:44)
[2019-08-07] MEDS: BLOOD SUGAR DIAGNOSTIC STRIP TEST SCH ×4 (04:42→20:44)
[2019-08-07] MEDS: METOCLOPRAMIDE HCL 10MG/2ML VIAL IV SCH ×3 (04:44→17:33)
[2019-08-07] MEDS: DILTIAZEM HCL 90MG TABLET PO SCH ×3 (04:44→17:33)
[2019-08-07 05:43] LABS: BASOPHILS % 0.6 % (0.0-2.0); EOSINOPHILS % 2.3 % (0.0-5.0); HEMATOCRIT. 25.1 % (42.0-52.0); HEMOGLOBIN. 8.7 g/dL (14.0-18.0); MEAN CORPUSCULAR HEMOGLOBIN 30.1 pg (28.0-32.0); MEAN CORPUSCULAR VOLUME 86.8 fL (80.0-94.0); MEAN PLATELET VOLUME 6.9 fl (7.4-10.4); MONOCYTES % 8.8 % (2.0-8.0); NEUTROPHILS % 80.3 % (40.0-76.0); PLATELET 247 x1000/uL (130-400); RED BLOOD CELL COUNT 2.89 mill/uL (4.7-6.1); RED CELL DISTRIBUTION WIDTH 14.4 % (11.6-14.6)
[2019-08-07 05:55] LABS: PHOSPHORUS 3.5 mg/dL (2.5-4.9)
[2019-08-07] MEDS: FOLIC ACID/VITAMIN B COMP W-C TABLET PO SCH (08:25)
[2019-08-07] MEDS: CALCIUM ACETATE 667MG CAPSULE PO SCH ×3 (08:25→17:33)
[2019-08-07] MEDS: FAMOTIDINE 20MG/2ML VIAL IV SCH (08:26)
[2019-08-07] MEDS: METOPROLOL TARTRATE 25MG TABLET PO SCH ×2 (08:26→20:37)
[2019-08-07] MEDS: CEFAZOLIN 2,000 MG in DEXT 5% WATER 100 ML IV SCH (08:26)
[2019-08-07] MEDS: AMLODIPINE 5MG TABLET PO SCH ×2 (08:26→20:38)
[2019-08-07] MEDS: INSULIN NPH (HUMULIN-N) 100 UNITS/ML 3ML VIAL SUBCUT SCH (08:32)
[2019-08-07] MEDS: DEXT 5%/0.9% NACL 1,000 ML IV SCH (18:24)
[2019-08-07] MEDS: EPOETIN ALFA 10000UNITS/ML VIAL SUBCUT SCH (20:38)
[2019-08-08] VITALS (11 sets, daily range): BP systolic 155–205; BP diastolic 75–99
[2019-08-08] MEDS: METOCLOPRAMIDE HCL 10MG/2ML VIAL IV SCH ×5 (00:05→23:28)
[2019-08-08] MEDS: ZOLPIDEM TARTRATE 5MG TABLET PO PRN ×2 (00:05→23:28)
[2019-08-08] MEDS: ACETAMINOPHEN 325MG TABLET PO PRN ×2 (00:05→03:34)
[2019-08-08] MEDS: DILTIAZEM HCL 90MG TABLET PO SCH ×5 (00:06→23:28)
[2019-08-08] MEDS: INSULIN NPH (HUMULIN-N) 100 UNITS/ML 3ML VIAL SUBCUT SCH ×3 (00:07→20:25)
[2019-08-08] MEDS: IPRATROPIUM/ALBUTEROL 0.5-3(2.5)MG/3ML NEB HHN SCH ×4 (01:32→20:25)
[2019-08-08] MEDS: CLONIDINE 0.1MG TABLET PO PRN ×2 (03:35→21:37)
[2019-08-08] MEDS: DIPHENHYDRAMINE 50MG/ML VIAL IV PRN (06:04)
[2019-08-08 06:21] LABS: CHLORIDE 104 mEq/L (98-107)
[2019-08-08 06:25] LABS: BASOPHILS % 0.6 % (0.0-2.0); EOSINOPHILS % 2.7 % (0.0-5.0); HEMATOCRIT. 21.4 % (42.0-52.0); HEMOGLOBIN. 7.5 g/dL (14.0-18.0); LYMPHOCYTES % 7.2 % (20.0-50.0); MEAN CORPUSCULAR HEMOGLOBIN 30.3 pg (28.0-32.0); MEAN CORPUSCULAR VOLUME 85.8 fL (80.0-94.0); MEAN PLATELET VOLUME 6.8 fl (7.4-10.4); MONOCYTES % 8.5 % (2.0-8.0); PLATELET 249 x1000/uL (130-400); RED BLOOD CELL COUNT 2.49 mill/uL (4.7-6.1)
[2019-08-08 06:27] LABS: PHOSPHORUS 4.4 mg/dL (2.5-4.9)
[2019-08-08] MEDS: BLOOD SUGAR DIAGNOSTIC STRIP TEST SCH ×4 (07:30→20:23)
[2019-08-08] MEDS: INSULIN LISPRO 100 UNITS/ML SUBCUT SCH ×4 (08:00→20:23)
[2019-08-08] MEDS: FAMOTIDINE 20MG/2ML VIAL IV SCH (08:50)
[2019-08-08] MEDS: HYDROCODONE/ACETAMINOPHEN 5/325MG TABLET PO PRN ×2 (08:51→19:38)
[2019-08-08] MEDS: CALCIUM ACETATE 667MG CAPSULE PO SCH ×3 (08:51→17:29)
[2019-08-08] MEDS: FOLIC ACID/VITAMIN B COMP W-C TABLET PO SCH (08:51)
[2019-08-08] MEDS: METOPROLOL TARTRATE 25MG TABLET PO SCH ×3 (08:52→20:22)
[2019-08-08] MEDS: AMLODIPINE 5MG TABLET PO SCH ×3 (08:52→20:22)
[2019-08-08] MEDS: CEFAZOLIN 2,000 MG in DEXT 5% WATER 100 ML IV SCH (12:52)
[2019-08-08] MEDS: DEXT 5%/0.9% NACL 1,000 ML IV SCH (13:19)
[2019-08-08] MEDS ORDERED: SODIUM BICARBONATE 4% (2.4MEQ) 5ML VIAL IV ONE (15:02)
[2019-08-08] MEDS ORDERED: LIDOCAINE HCL 1% 20ML VIAL (Pyxis) INJ ONE (15:02)
[2019-08-08] MEDS: HYDRALAZINE 20MG/ML VIAL IV PRN (16:35)
[2019-08-08 22:11] LABS: CLARITY URINE CLEAR (CLEAR); COLOR URINE YELLOW (YELLOW); KETONES URINE NEGATIVE (NEGATIVE); LEUKOCYTE ESTERASE URINE NEGATIVE (NEGATIVE); NITRITE URINE NEGATIVE (NEGATIVE); OCCULT BLOOD URINE NEGATIVE (NEGATIVE); PROTEIN URINE 3+ (NEGATIVE); SPECIFIC GRAVITY URINE 1.011 (1.005-1.030); UROBILINOGEN URINE 0.2 E.U./dL (0.2-1.0)
[2019-08-09] VITALS (11 sets, daily range): BP systolic 127–187; BP diastolic 51–101
[2019-08-09] MEDS: IPRATROPIUM/ALBUTEROL 0.5-3(2.5)MG/3ML NEB HHN SCH ×4 (00:28→21:02)
[2019-08-09] MEDS: HYDROCODONE/ACETAMINOPHEN 5/325MG TABLET PO PRN ×2 (04:52→20:26)
[2019-08-09] MEDS: DILTIAZEM HCL 90MG TABLET PO SCH ×4 (05:05→23:53)
[2019-08-09] MEDS: METOCLOPRAMIDE HCL 10MG/2ML VIAL IV SCH ×4 (05:05→23:50)
[2019-08-09] MEDS: BLOOD SUGAR DIAGNOSTIC STRIP TEST SCH ×4 (07:30→20:41)
[2019-08-09] MEDS: INSULIN LISPRO 100 UNITS/ML SUBCUT SCH ×4 (08:00→20:41)
[2019-08-09] MEDS: CEFAZOLIN 2,000 MG in DEXT 5% WATER 100 ML IV SCH (09:53)
[2019-08-09] MEDS: AMLODIPINE 5MG TABLET PO SCH ×2 (09:55→20:26)
[2019-08-09] MEDS: FOLIC ACID/VITAMIN B COMP W-C TABLET PO SCH (09:56)
[2019-08-09] MEDS: INSULIN NPH (HUMULIN-N) 100 UNITS/ML 3ML VIAL SUBCUT SCH ×2 (09:56→20:40)
[2019-08-09] MEDS: METOPROLOL TARTRATE 25MG TABLET PO SCH (09:56)
[2019-08-09] MEDS: FAMOTIDINE 20MG/2ML VIAL IV SCH (09:57)
[2019-08-09] MEDS: HYDRALAZINE 20MG/ML VIAL IV PRN (09:57)
[2019-08-09] MEDS: CALCIUM ACETATE 667MG CAPSULE PO SCH ×3 (14:24→18:11)
[2019-08-09] MEDS: ONDANSETRON HCL 4MG/2ML INJ IV PRN (15:58)
[2019-08-09] MEDS: CLONIDINE 0.1MG TABLET PO PRN (18:11)
[2019-08-09] MEDS: METOPROLOL TARTRATE 50MG TABLET PO SCH (20:26)
[2019-08-10] VITALS (10 sets, daily range): BP systolic 137–189; BP diastolic 55–125
[2019-08-10] MEDS: ZOLPIDEM TARTRATE 5MG TABLET PO PRN ×2 (00:03→21:01)
[2019-08-10] MEDS: IPRATROPIUM/ALBUTEROL 0.5-3(2.5)MG/3ML NEB HHN SCH ×4 (02:42→20:00)
[2019-08-10] MEDS: METOCLOPRAMIDE HCL 10MG/2ML VIAL IV SCH ×4 (05:08→23:45)
[2019-08-10] MEDS: DILTIAZEM HCL 90MG TABLET PO SCH ×4 (05:11→23:45)
[2019-08-10] MEDS: BLOOD SUGAR DIAGNOSTIC STRIP TEST SCH ×4 (07:35→20:52)
[2019-08-10 07:56] LABS: BASOPHILS % 0.8 % (0.0-2.0); EOSINOPHILS % 2.5 % (0.0-5.0); HEMATOCRIT. 22.4 % (42.0-52.0); HEMOGLOBIN. 7.8 g/dL (14.0-18.0); LYMPHOCYTES % 8.5 % (20.0-50.0); MEAN CORPUSCULAR VOLUME 86.1 fL (80.0-94.0); MEAN PLATELET VOLUME 6.9 fl (7.4-10.4); NEUTROPHILS % 80.2 % (40.0-76.0); PLATELET 257 x1000/uL (130-400); RED CELL DISTRIBUTION WIDTH 15.1 % (11.6-14.6)
[2019-08-10] MEDS: INSULIN LISPRO 100 UNITS/ML SUBCUT SCH ×4 (08:00→21:00)
[2019-08-10] MEDS: CEFAZOLIN 2,000 MG in DEXT 5% WATER 100 ML IV SCH ×2 (08:51→18:28)
[2019-08-10] MEDS: AMLODIPINE 5MG TABLET PO SCH ×2 (08:52→20:52)
[2019-08-10] MEDS: METOPROLOL TARTRATE 50MG TABLET PO SCH ×3 (08:52→20:52)
[2019-08-10] MEDS: CALCIUM ACETATE 667MG CAPSULE PO SCH ×3 (08:55→18:00)
[2019-08-10] MEDS: FAMOTIDINE 20MG/2ML VIAL IV SCH (08:55)
[2019-08-10] MEDS: INSULIN NPH (HUMULIN-N) 100 UNITS/ML 3ML VIAL SUBCUT SCH ×2 (08:56→20:59)
[2019-08-10] MEDS: FOLIC ACID/VITAMIN B COMP W-C TABLET PO SCH (08:56)
[2019-08-10 09:30] LABS: PHOSPHORUS 4.4 mg/dL (2.5-4.9)
[2019-08-10] MEDS: DUTASTERIDE 0.5MG CAPSULE PO SCH (12:17)
[2019-08-10] MEDS: LOSARTAN POTASSIUM 50 MG TABLET PO SCH (16:22)
[2019-08-10] MEDS: CLONIDINE 0.2MG TABLET PO PRN (16:23)
[2019-08-10] MEDS: TAMSULOSIN HCL 0.4MG SR CAPSULE PO SCH (20:51)
[2019-08-11] VITALS (12 sets, daily range): BP systolic 141–191; BP diastolic 61–91
[2019-08-11] MEDS: IPRATROPIUM/ALBUTEROL 0.5-3(2.5)MG/3ML NEB HHN SCH ×4 (01:52→19:55)
[2019-08-11] MEDS: HYDROCODONE/ACETAMINOPHEN 5/325MG TABLET PO PRN (02:33)
[2019-08-11] MEDS: METOCLOPRAMIDE HCL 10MG/2ML VIAL IV SCH ×3 (06:54→17:30)
[2019-08-11] MEDS: DILTIAZEM HCL 90MG TABLET PO SCH ×3 (06:55→17:29)
[2019-08-11] MEDS: BLOOD SUGAR DIAGNOSTIC STRIP TEST SCH ×4 (07:43→21:24)
[2019-08-11] MEDS: INSULIN LISPRO 100 UNITS/ML SUBCUT SCH ×4 (08:00→21:25)
[2019-08-11 08:07] LABS: BASOPHILS % 1.1 % (0.0-2.0); EOSINOPHILS % 2.8 % (0.0-5.0); HEMATOCRIT. 26.1 % (42.0-52.0); LYMPHOCYTES % 12.5 % (20.0-50.0); MEAN CORPUSCULAR HEMOGLOBIN 29.7 pg (28.0-32.0); MEAN CORPUSCULAR VOLUME 86.7 fL (80.0-94.0); MEAN PLATELET VOLUME 6.5 fl (7.4-10.4); MONOCYTES % 6.5 % (2.0-8.0); NEUTROPHILS % 77.1 % (40.0-76.0); PLATELET 354 x1000/uL (130-400); RED BLOOD CELL COUNT 3.02 mill/uL (4.7-6.1); RED CELL DISTRIBUTION WIDTH 15.4 % (11.6-14.6)
[2019-08-11] MEDS: TAMSULOSIN HCL 0.4MG SR CAPSULE PO SCH ×2 (08:19→20:12)
[2019-08-11] MEDS: AMLODIPINE 5MG TABLET PO SCH (08:19)
[2019-08-11] MEDS: LOSARTAN POTASSIUM 50 MG TABLET PO SCH (08:19)
[2019-08-11] MEDS: METOPROLOL TARTRATE 50MG TABLET PO SCH ×2 (08:19→20:11)
[2019-08-11] MEDS: DUTASTERIDE 0.5MG CAPSULE PO SCH (08:19)
[2019-08-11] MEDS: FOLIC ACID/VITAMIN B COMP W-C TABLET PO SCH (08:20)
[2019-08-11] MEDS: FAMOTIDINE 20MG/2ML VIAL IV SCH (08:20)
[2019-08-11] MEDS: CALCIUM ACETATE 667MG CAPSULE PO SCH ×3 (08:21→17:29)
[2019-08-11] MEDS: INSULIN NPH (HUMULIN-N) 100 UNITS/ML 3ML VIAL SUBCUT SCH ×2 (08:22→21:25)
[2019-08-11 08:36] LABS: PHOSPHORUS 3.8 mg/dL (2.5-4.9)
[2019-08-11] MEDS ORDERED: BISACODYL 10MG SUPP PR PRN (10:15)
[2019-08-11] MEDS: CEFAZOLIN 2,000 MG in DEXT 5% WATER 100 ML IV SCH (11:25)
[2019-08-11] MEDS: DOCUSATE SODIUM 100MG CAPSULE PO SCH ×2 (11:26→17:29)
[2019-08-11] MEDS: CLONIDINE 0.2MG TABLET PO PRN (18:40)
[2019-08-11] MEDS ORDERED: AMLODIPINE 10MG TABLET PO SCH (21:00)
[2019-08-11] MEDS ORDERED: POLYETHYLENE GLYCOL 3350 (17GM) 1 DOSE PACK PO SCH (21:00)
[2019-08-12] MEDS ORDERED: FAMOTIDINE 20MG TABLET PO SCH (09:00)
== END 2019-08-11 23:52 | DRG 853 ==
LOC: ER 17:02 → EDBEDREQTM 22:37 → EDBEDREQSVC 22:37 → EDBEDREQ 22:37 → ENRESERV 07-27 12:21 → 6WST 07-27 14:33 → MICUNO 07-30 15:19 → 5EST 08-07 13:55
PROVIDERS: ADMIT Internal Medicine; ATTEND Internal Medicine
PROC: 5A1D70Z Performance of Urinary Filtration, Intermittent, Less than 6 Hours Per Day (ICD-10-PCS; 2019-07-28)
PROC: 5A1D70Z Performance of Urinary Filtration, Intermittent, Less than 6 Hours Per Day (ICD-10-PCS; 2019-07-29)
PROC: 0RG10A0 Fusion of Cervical Vertebral Joint with Interbody Fusion Device, Anterior Approach, Anterior Column, Open Approach (ICD-10-PCS; principal; 2019-07-30)
PROC: 4A11X4G Monitoring of Peripheral Nervous Electrical Activity, Intraoperative, External Approach (ICD-10-PCS; 2019-07-30)
PROC: 5A1D70Z Performance of Urinary Filtration, Intermittent, Less than 6 Hours Per Day (ICD-10-PCS; 2019-07-30)
PROC: 5A1945Z Respiratory Ventilation, 24-96 Consecutive Hours (ICD-10-PCS; 2019-07-30)
PROC: 0BH17EZ Insertion of Endotracheal Airway into Trachea, Via Natural or Artificial Opening (ICD-10-PCS; 2019-07-30)
PROC: 009U00Z Drainage of Spinal Canal with Drainage Device, Open Approach (ICD-10-PCS; 2019-07-30)
PROC: 5A1D70Z Performance of Urinary Filtration, Intermittent, Less than 6 Hours Per Day (ICD-10-PCS; 2019-08-01)
PROC: 5A1D70Z Performance of Urinary Filtration, Intermittent, Less than 6 Hours Per Day (ICD-10-PCS; 2019-08-03)
PROC: 5A1D70Z Performance of Urinary Filtration, Intermittent, Less than 6 Hours Per Day (ICD-10-PCS; 2019-08-05)
PROC: 02HV33Z Insertion of Infusion Device into Superior Vena Cava, Percutaneous Approach (ICD-10-PCS; 2019-08-08)
PROC: B548ZZA Ultrasonography of Superior Vena Cava, Guidance (ICD-10-PCS; 2019-08-08)
PROC: 5A1D70Z Performance of Urinary Filtration, Intermittent, Less than 6 Hours Per Day (ICD-10-PCS; 2019-08-09)
DX: A41.01 Sepsis due to Methicillin susceptible Staphylococcus aureus (principal); I50.41 Acute combined systolic (congestive) and diastolic (congestive) heart failure; J96.00 Acute respiratory failure, unspecified whether with hypoxia or hypercapnia; G92 Toxic encephalopathy; N18.6 End stage renal disease; G82.50 Quadriplegia, unspecified; G06.1 Intraspinal abscess and granuloma; E43 Unspecified severe protein-calorie malnutrition; I13.2 Hypertensive heart and chronic kidney disease with heart failure and with stage 5 chronic kidney disease, or end stage renal disease; J39.0 Retropharyngeal and parapharyngeal abscess; M46.22 Osteomyelitis of vertebra, cervical region; R65.20 Severe sepsis without septic shock; D63.1 Anemia in chronic kidney disease; E78.1 Pure hyperglyceridemia; M46.42 Discitis, unspecified, cervical region; M47.812 Spondylosis without myelopathy or radiculopathy, cervical region; D69.6 Thrombocytopenia, unspecified; E03.9 Hypothyroidism, unspecified; E11.22 Type 2 diabetes mellitus with diabetic chronic kidney disease; R26.9 Unspecified abnormalities of gait and mobility; E21.3 Hyperparathyroidism, unspecified; R33.9 Retention of urine, unspecified; E11.69 Type 2 diabetes mellitus with other specified complication; E78.5 Hyperlipidemia, unspecified; I27.20 Pulmonary hypertension, unspecified; Z99.2 Dependence on renal dialysis; Z78.1 Physical restraint status; Z79.4 Long term (current) use of insulin; Z79.899 Other long term (current) drug therapy; Z82.49 Family history of ischemic heart disease and other diseases of the circulatory system; Z83.3 Family history of diabetes mellitus; Z87.891 Personal history of nicotine dependence; Z90.49 Acquired absence of other specified parts of digestive tract; Z68.28 Body mass index [BMI] 28.0-28.9, adult
CPT/HCPCS: 36415; 36600; 70492; 70540; 71045; 72040; 72141; 74018; 76000; 76937; 78806; 80048; 80053; 80061; 80202; 80305; 81003; 82375; 82550; 82553; 82805; 82962; 83036; 83605; 83735; 83970; 84100; 84145; 84443; 84478; 84484; 85025; 85027; 85651; 86140; 87070; 87075; 87077; 87804; 88304; 88311; 92610; 93005; 93306; 93970; 94003; 94640; 95863; 95925; 95926; 95928; 95929; 97110; 97116; 97162; 97530; 99291; A6261; A9547; C1713; C1725; J0330; J0360; J0690; J0885; J1100; J1200; J1644; J1650; J1720; J1815; J1885; J2060; J2250; J2270; J2405; J2543; J2704; J2710; J2765; J3010; J3370; J3490; J7030; J7042; J7050; J7060; J7620; L0172; P9041; Q9967; A4315